=== PATIENT | female | born 1960 | race African-American/Black ===

== ENCOUNTER 2017-09-03 10:46 | Outpatient (CLI) | payer OTHER ==
[~2017-09-03 10:46] MED LIST: KETO10TA2 PO; NORVASC5 MG; NORVASC5 MG PO; ORPH100T PO; PROTONIX40 MG PO; ULTRACET
== END 2017-09-03 10:49 | disposition home or self-care (01) ==
LOC: RAD 10:46
DX: Z00.00 Encounter for general adult medical examination without abnormal findings (principal)

== ENCOUNTER 2018-05-12 11:04 | Outpatient (CLI) | payer OTHER | END 2018-05-12 11:11 | disposition home or self-care (01) | LOC: RAD 11:04 | DX: M54.5 Low back pain (principal) ==

== ENCOUNTER 2019-05-25 14:57 | Emergency (ER) | payer OTHER ==
[~2019-05-25] VITALS: Ht 157.5 cm; Wt 64.4 kg
[2019-05-25] MEDS ORDERED: NORVASC5 MG PO (15:15)
== END 2019-05-25 18:38 | disposition home or self-care (01) ==
LOC: ER 14:57
DX: K29.60 Other gastritis without bleeding (principal); E86.0 Dehydration; R11.11 Vomiting without nausea

== ENCOUNTER 2022-09-02 09:51 | Emergency (ER) | payer OTHER ==
[~2022-09-02] VITALS: Ht 157.5 cm; Wt 61.2 kg
[2022-09-02] MEDS ORDERED: PEPCID AC20 MG PO (16:21)
[2022-09-02] MEDS ORDERED: LEVSIN/SL0.125 MG PO (16:21)
[2022-09-02] MEDS ORDERED: ONDANSETRON ODT4 MG PO (16:21)
== END 2022-09-02 16:39 ==
LOC: ER 09:51
DX: K29.70 Gastritis, unspecified, without bleeding (principal); E86.0 Dehydration; I10 Essential (primary) hypertension; Z88.5 Allergy status to narcotic agent

== ENCOUNTER 2022-10-01 11:36 | Outpatient (CLI) | payer OTHER ==
[~2022-10-01 11:36] MED LIST changes: +LEVSIN/SL0.125 MG PO; +ONDANSETRON ODT4 MG PO; +PEPCID AC20 MG PO
== END 2022-10-01 11:37 | disposition home or self-care (01) ==
LOC: LAB 11:36
PROVIDERS: ATTEND Internal Medicine Hematology & Oncology
DX: D50.8 Other iron deficiency anemias (principal); R79.9 Abnormal finding of blood chemistry, unspecified; I10 Essential (primary) hypertension; R74.02 Elevation of levels of lactic acid dehydrogenase [LDH]; K76.89 Other specified diseases of liver; D51.8 Other vitamin B12 deficiency anemias; B20 Human immunodeficiency virus [HIV] disease; B17.9 Acute viral hepatitis, unspecified; Z11.59 Encounter for screening for other viral diseases; E55.9 Vitamin D deficiency, unspecified; B27.90 Infectious mononucleosis, unspecified without complication; D69.3 Immune thrombocytopenic purpura

== ENCOUNTER 2022-11-27 15:16 | Emergency (ER) | payer OTHER ==
[~2022-11-27] VITALS: Ht 157.5 cm; Wt 56.7 kg
[2022-11-27] MEDS ORDERED: PEPCID AC20 MG PO (18:30)
[2022-11-27] MEDS ORDERED: ZOFRAN8 MG PO (18:30)
== END 2022-11-27 20:41 | disposition home or self-care (01) ==
LOC: ER 15:16
DX: K29.70 Gastritis, unspecified, without bleeding (principal)

== ENCOUNTER → 2022-12-10 10:49 | Outpatient (CLI) | payer OTHER ==
[~2022-12-10 10:49] MED LIST changes: +ZOFRAN8 MG PO
== END | disposition home or self-care (01) ==
LOC: LAB 10:49
PROVIDERS: ATTEND Internal Medicine Cardiovascular Disease
DX: I10 Essential (primary) hypertension (principal); R63.4 Abnormal weight loss

== ENCOUNTER 2022-12-11 15:56 | Outpatient (CLI) | payer OTHER | END 2022-12-11 16:02 | disposition home or self-care (01) | LOC: LAB 15:56 | PROVIDERS: ATTEND Internal Medicine Cardiovascular Disease | DX: I10 Essential (primary) hypertension (principal); R63.4 Abnormal weight loss ==

== ENCOUNTER 2023-01-13 07:32 | Emergency (ER) | payer OTHER ==
[~2023-01-13] VITALS: Ht 162.6 cm; Wt 56.7 kg
== END 2023-01-13 10:32 | disposition home or self-care (01) ==
LOC: ER 07:32
DX: B34.9 Viral infection, unspecified (principal); R05.8 Other specified cough; J00 Acute nasopharyngitis [common cold]; R50.9 Fever, unspecified; Z88.5 Allergy status to narcotic agent; Z88.6 Allergy status to analgesic agent; Z20.822 Contact with and (suspected) exposure to COVID-19

== ENCOUNTER 2023-01-16 07:43 | Emergency (ER) | payer OTHER ==
[~2023-01-16] VITALS: Ht 157.5 cm; Wt 55.3 kg
== END 2023-01-16 10:25 | disposition home or self-care (01) ==
LOC: ER 07:43
DX: R04.0 Epistaxis (principal); Z88.6 Allergy status to analgesic agent; I10 Essential (primary) hypertension

== ENCOUNTER 2023-01-16 21:58 | Emergency (ER) | payer OTHER ==
[~2023-01-16] VITALS: Ht 157.5 cm; Wt 55.3 kg
== END 2023-01-17 00:56 | disposition home or self-care (01) ==
LOC: ER 21:58
DX: I16.9 Hypertensive crisis, unspecified (principal); I10 Essential (primary) hypertension; Z88.6 Allergy status to analgesic agent

== ENCOUNTER 2023-01-19 08:16 | Outpatient (CLI) | payer OTHER | END 2023-01-19 08:32 | disposition home or self-care (01) | LOC: LAB 08:16 | PROVIDERS: ATTEND Internal Medicine Hematology & Oncology | DX: D50.8 Other iron deficiency anemias (principal); R79.9 Abnormal finding of blood chemistry, unspecified; I10 Essential (primary) hypertension; R74.02 Elevation of levels of lactic acid dehydrogenase [LDH]; K76.89 Other specified diseases of liver; D51.8 Other vitamin B12 deficiency anemias; D68.8 Other specified coagulation defects; D69.1 Qualitative platelet defects ==

== ENCOUNTER 2023-01-29 09:10 | Outpatient (CLI) | payer OTHER | END 2023-01-29 09:11 | disposition home or self-care (01) | LOC: LAB 09:10 | PROVIDERS: ATTEND Obstetrics & Gynecology Maternal & Fetal Medicine | DX: E03.9 Hypothyroidism, unspecified (principal) ==

== ENCOUNTER 2023-01-29 09:39 | Outpatient (CLI) | payer OTHER | END 2023-01-29 09:50 | disposition home or self-care (01) | LOC: MAMO-SONO 09:39 | PROVIDERS: ATTEND Obstetrics & Gynecology Maternal & Fetal Medicine | DX: Z12.31 Encounter for screening mammogram for malignant neoplasm of breast (principal); N63.0 Unspecified lump in unspecified breast; N64.4 Mastodynia; N60.11 Diffuse cystic mastopathy of right breast ==

== ENCOUNTER 2023-04-29 10:38 | Outpatient (CLI) | payer OTHER | END 2023-04-29 10:40 | disposition home or self-care (01) | LOC: LAB 10:38 | DX: E03.9 Hypothyroidism, unspecified (principal); E78.2 Mixed hyperlipidemia; D64.9 Anemia, unspecified; R73.01 Impaired fasting glucose ==

== ENCOUNTER 2023-04-29 11:54 | Outpatient (CLI) | payer OTHER | END 2023-04-29 12:07 | disposition home or self-care (01) | LOC: SONOGRAMA 11:54 | DX: E04.1 Nontoxic single thyroid nodule (principal) ==

== ENCOUNTER 2023-05-29 08:50 | Outpatient (CLI) | payer OTHER | END 2023-05-29 08:51 | disposition home or self-care (01) | LOC: SONOGRAMA 08:50 | PROVIDERS: ATTEND Pathology Anatomic Pathology & Clinical Pathology | DX: D44.0 Neoplasm of uncertain behavior of thyroid gland (principal); E07.9 Disorder of thyroid, unspecified ==

== ENCOUNTER 2023-07-22 11:12 | Outpatient (CLI) | payer OTHER | END 2023-07-22 11:25 | disposition home or self-care (01) | LOC: RAD 11:12 | PROVIDERS: ATTEND Physical Medicine & Rehabilitation | DX: M25.512 Pain in left shoulder (principal); M54.12 Radiculopathy, cervical region ==

== ENCOUNTER 2023-07-23 13:23 | Emergency (ER) | payer OTHER ==
[~2023-07-23] VITALS: Ht 149.9 cm; Wt 56.7 kg
[2023-07-23 18:36] LABS: HEMATOCRIT 43.6 % (36.0-45.00); HEMOGLOBIN 14.2 g/dL (12.0-15.00); MEAN CORPUSCULAR HEMOGLOBIN 30.3 pg (27.00-32.0); MEAN CORPUSCULAR HGB CONC 32.6 g/dl (32.0-36.0); PLATELET COUNT 179 K/uL (150-450); RED BLOOD COUNT 4.69 M/uL (4.00-6.00); RED CELL DISTRIBUTION WIDTH 13.1 % (11.5-14.5)
[2023-07-23 19:01] LABS: ALBUMIN 3.9 gm/dL (3.4-5.0); BILIRUBIN TOTAL 0.5 mg/dL (0.3-1.2); CALCIUM 9.5 mg/dL (8.5-10.1); CREATININE SERUM 0.7 mg/dL (0.55-1.02); GFR 85.07; GLOBULINA 4.4 G/DL (2.4-3.5); POTASSIUM 3.51 mEq/L (3.5-5.1); TOTAL PROTEIN 8.3 gm/dL (6.4-8.2)
== END 2023-07-23 19:56 | disposition home or self-care (01) ==
LOC: ER 13:23
PROVIDERS: General Practice
DX: R11.2 Nausea with vomiting, unspecified (principal); M54.2 Cervicalgia; Z20.822 Contact with and (suspected) exposure to COVID-19

== ENCOUNTER 2023-08-14 07:27 | Outpatient (CLI) | payer OTHER ==
[2023-08-14 08:53] LABS: CALCIUM 9.5 mg/dL (8.5-10.1); CREATININE SERUM 0.77 mg/dL (0.55-1.02); GFR 75.96; POTASSIUM 4.4 mEq/L (3.5-5.1)
[2023-08-14 09:02] LABS: T4 FREE 1.1 NG/ML (0.76-1.46); TSH 2.13 uIU/mL (0.358-3.74)
== END 2023-08-14 07:39 | disposition home or self-care (01) ==
LOC: LAB 07:27
PROVIDERS: ATTEND Internal Medicine Endocrinology, Diabetes & Metabolism
DX: E10.65 Type 1 diabetes mellitus with hyperglycemia (principal); E03.8 Other specified hypothyroidism; E24.0 Pituitary-dependent Cushing's disease; C73 Malignant neoplasm of thyroid gland; Z88.5 Allergy status to narcotic agent; Z88.6 Allergy status to analgesic agent

== ENCOUNTER 2023-08-29 14:11 | Emergency (ER) | payer OTHER ==
[~2023-08-29] VITALS: Ht 149.9 cm; Wt 55.3 kg
== END 2023-08-29 21:33 | disposition home or self-care (01) ==
LOC: ER 14:11
DX: M62.838 Other muscle spasm (principal); M54.2 Cervicalgia; Z88.8 Allergy status to other drugs, medicaments and biological substances

== ENCOUNTER 2023-10-28 10:08 | Outpatient (CLI) | payer OTHER ==
[2023-10-28 11:18] LABS: HEMATOCRIT 40.1 % (36.0-45.00); HEMOGLOBIN 13.5 g/dL (12.0-15.00); MEAN CORPUSCULAR HGB CONC 33.6 g/dl (32.0-36.0); PLATELET COUNT 161 K/uL (150-450); RED BLOOD COUNT 4.36 M/uL (4.00-6.00); RED CELL DISTRIBUTION WIDTH 12.9 % (11.5-14.5)
[2023-10-28 11:19] LABS: PH,URINE 7.5 (5.0-8.0); URINE APPEARANCE Clear; URINE BILIRRUBIN Negative (NEGATIVE); URINE BLOOD Negative; URINE COLOR Yellow; URINE GLUCOSE Negative (NEGATIVE); URINE LEUKOCYTE Negative; URINE NITRATE Negative; URINE PROTEIN Negative (NEGATIVE); URINE UROBILINOGEN 0.2 E.U./dl
[2023-10-28 11:21] LABS: URINE BACTERIA 15.1 uL (0.0-1933)
[2023-10-28 11:31] LABS: URINE EPITHELIAL CELLS 0.9 uL (0.0-38.8); URINE RBC 0.8 uL (0.0-20.8); URINE WBC 0.4 uL (0.0-23.2)
[2023-10-28 12:01] LABS: ALBUMIN 3.8 gm/dL (3.4-5.0); BILIRUBIN TOTAL 0.59 mg/dL (0.3-1.2); CALCIUM 9.2 mg/dL (8.5-10.1); CHOL HDL RATIO 2.9 (0-5.0); CREATININE SERUM 0.74 mg/dL (0.55-1.02); GFR 79.52; GLOBULINA 3.4 G/DL (2.4-3.5); POTASSIUM 4.35 mEq/L (3.5-5.1); T4 FREE 0.98 NG/ML (0.76-1.46); TOTAL PROTEIN 7.2 gm/dL (6.4-8.2); TSH 1.08 uIU/mL (0.358-3.74)
== END 2023-10-28 10:22 | disposition home or self-care (01) ==
LOC: LAB 10:08
PROVIDERS: ATTEND Internal Medicine
DX: E11.65 Type 2 diabetes mellitus with hyperglycemia (principal); I10 Essential (primary) hypertension; E03.8 Other specified hypothyroidism; E78.9 Disorder of lipoprotein metabolism, unspecified

== ENCOUNTER 2023-11-05 09:50 | Outpatient (CLI) | payer OTHER | END 2023-11-05 09:52 | disposition home or self-care (01) | LOC: SONOGRAMA 09:50 | PROVIDERS: ATTEND Pathology Anatomic Pathology & Clinical Pathology | DX: D44.0 Neoplasm of uncertain behavior of thyroid gland (principal); E04.2 Nontoxic multinodular goiter ==

== ENCOUNTER 2023-12-03 09:54 | Outpatient (CLI) | payer OTHER | END 2023-12-03 09:57 | disposition home or self-care (01) | LOC: SONOGRAMA 09:54 | PROVIDERS: ATTEND Internal Medicine Cardiovascular Disease | DX: R10.9 Unspecified abdominal pain (principal); Z88.5 Allergy status to narcotic agent; Z88.6 Allergy status to analgesic agent ==

== ENCOUNTER 2023-12-03 10:51 | Outpatient (CLI) | payer OTHER ==
[2023-12-03 11:52] LABS: HEMATOCRIT 42.4 % (36.0-45.00); HEMOGLOBIN 14.3 g/dL (12.0-15.00); MEAN CELL VOLUME 93.2 fL (80.00-100.00); MEAN CORPUSCULAR HEMOGLOBIN 31.3 pg (27.00-32.0); MEAN CORPUSCULAR HGB CONC 33.6 g/dl (32.0-36.0); PLATELET COUNT 159 K/uL (150-450); RED BLOOD COUNT 4.55 M/uL (4.00-6.00); RED CELL DISTRIBUTION WIDTH 12.9 % (11.5-14.5)
[2023-12-03 12:45] LABS: BILIRUBIN TOTAL 0.45 mg/dL (0.3-1.2); CALCIUM 9.4 mg/dL (8.5-10.1); CREATININE SERUM 0.7 mg/dL (0.55-1.02); GFR 84.79; GLOBULINA 3.7 G/DL (2.4-3.5); POTASSIUM 4.14 mEq/L (3.5-5.1); TOTAL PROTEIN 7.7 gm/dL (6.4-8.2)
[2023-12-03 13:16] LABS: FOLIC ACID > 20.00 ng/ml (4.78-20)
== END 2023-12-03 10:52 | disposition home or self-care (01) ==
LOC: LAB 10:51
PROVIDERS: ATTEND Internal Medicine Hematology & Oncology
DX: D50.8 Other iron deficiency anemias (principal); R79.9 Abnormal finding of blood chemistry, unspecified; R74.02 Elevation of levels of lactic acid dehydrogenase [LDH]; K76.89 Other specified diseases of liver; D51.8 Other vitamin B12 deficiency anemias; C50.919 Malignant neoplasm of unspecified site of unspecified female breast; R97.8 Other abnormal tumor markers; C25.9 Malignant neoplasm of pancreas, unspecified; C56.9 Malignant neoplasm of unspecified ovary; R97.1 Elevated cancer antigen 125 [CA 125]; R97.0 Elevated carcinoembryonic antigen [CEA]; D69.3 Immune thrombocytopenic purpura; D51.3 Other dietary vitamin B12 deficiency anemia; I10 Essential (primary) hypertension; Z88.5 Allergy status to narcotic agent; Z88.6 Allergy status to analgesic agent

== ENCOUNTER 2024-04-05 11:05 | Emergency (ER) | payer OTHER ==
[~2024-04-05] VITALS: Ht 149.9 cm; Wt 56.7 kg
[2024-04-05] MEDS ORDERED: KETOROLAC TROMETHAMINE 30 MG VIAL IM STA (13:15)
[2024-04-05] MEDS ORDERED: ONDANSETRON HCL 2 MG/ML VIAL IM STA (13:16)
[2024-04-05] MEDS ORDERED: ADVIL DUAL ACT1 EACH PO (14:06)
[2024-04-05] MEDS ORDERED: NORFLEX100MG PO (14:06)
== END 2024-04-05 14:52 | disposition home or self-care (01) ==
LOC: ER 11:06
DX: M62.838 Other muscle spasm (principal); E11.9 Type 2 diabetes mellitus without complications; Z79.84 Long term (current) use of oral hypoglycemic drugs; I10 Essential (primary) hypertension; Z88.8 Allergy status to other drugs, medicaments and biological substances

== ENCOUNTER → 2024-07-27 11:18 | Outpatient (CLI) | payer OTHER ==
[2024-07-27 12:07] LABS: HEMATOCRIT 39.1 % (36.0-45.00); HEMOGLOBIN 12.9 g/dL (12.0-15.00); MEAN CELL VOLUME 93.3 fL (80.00-100.00); MEAN CORPUSCULAR HEMOGLOBIN 30.7 pg (27.00-32.0); MEAN CORPUSCULAR HGB CONC 32.9 g/dl (32.0-36.0); PLATELET COUNT 156 K/uL (150-450); RED BLOOD COUNT 4.19 M/uL (4.00-6.00); RED CELL DISTRIBUTION WIDTH 12.7 % (11.5-14.5)
[2024-07-27 12:51] LABS: ALBUMIN 3.8 gm/dL (3.4-5.0); BILIRUBIN TOTAL 0.53 mg/dL (0.3-1.2); CALCIUM 9.1 mg/dL (8.5-10.1); CHOL HDL RATIO 3.3 (0-5.0); CREATININE SERUM 0.7 mg/dL (0.55-1.02); GFR 84.79; GLOBULINA 3.3 G/DL (2.4-3.5); POTASSIUM 4.48 mEq/L (3.5-5.1); T4 FREE 1.01 NG/ML (0.76-1.46); TOTAL PROTEIN 7.1 gm/dL (6.4-8.2); TSH 1.01 uIU/mL (0.358-3.74)
== END | disposition home or self-care (01) ==
LOC: LAB 11:18
PROVIDERS: ATTEND Internal Medicine
DX: E03.8 Other specified hypothyroidism (principal); E11.65 Type 2 diabetes mellitus with hyperglycemia; E78.5 Hyperlipidemia, unspecified

== ENCOUNTER → 2024-07-27 | Outpatient (CLI) | payer OTHER ==
[~2024-07-27] MED LIST changes: +ADVIL DUAL ACT1 EACH PO; +NORFLEX100MG PO
== END | disposition home or self-care (01) ==
LOC: SONOGRAMA 12:18
PROVIDERS: ATTEND Internal Medicine
DX: E04.2 Nontoxic multinodular goiter (principal)

== ENCOUNTER 2024-10-19 11:27 | Outpatient (CLI) | payer OTHER | END 2024-10-19 11:34 | disposition home or self-care (01) | LOC: SONOGRAMA 11:27 | PROVIDERS: ATTEND Internal Medicine Cardiovascular Disease | DX: R10.9 Unspecified abdominal pain (principal) ==

== ENCOUNTER → 2024-10-26 10:47 | Outpatient (CLI) | payer OTHER ==
[2024-10-26 11:34] LABS: PH,URINE 7.5 (5.0-8.0); URINE APPEARANCE Clear; URINE BILIRRUBIN Negative (NEGATIVE); URINE BLOOD Negative; URINE COLOR Yellow; URINE GLUCOSE Negative (NEGATIVE); URINE KETONE Negative (NEGATIVE); URINE LEUKOCYTE Trace; URINE NITRATE Negative; URINE PROTEIN Negative (NEGATIVE); URINE UROBILINOGEN 0.2 E.U./dl
[2024-10-26 11:36] LABS: URINE WBC 1.8 uL (0.0-23.2)
[2024-10-26 11:38] LABS: HEMATOCRIT 36.7 % (36.0-45.00); HEMOGLOBIN 12.1 g/dL (12.0-15.00); MEAN CELL VOLUME 92.8 fL (80.00-100.00); MEAN CORPUSCULAR HEMOGLOBIN 30.7 pg (27.00-32.0); PLATELET COUNT 144 K/uL (150-450); RED BLOOD COUNT 3.96 M/uL (4.00-6.00); RED CELL DISTRIBUTION WIDTH 13.1 % (11.5-14.5)
[2024-10-26 11:42] LABS: URINE BACTERIA 3.6 uL (0.0-1933); URINE EPITHELIAL CELLS 1.2 uL (0.0-38.8); URINE RBC 0.7 uL (0.0-20.8)
[2024-10-26 12:42] LABS: ALBUMIN 3.5 gm/dL (3.4-5.0); BILIRUBIN TOTAL 0.81 mg/dL (0.3-1.2); CALCIUM 9.1 mg/dL (8.5-10.1); CREATININE SERUM 0.68 mg/dL (0.55-1.02); GFR 87.39; POTASSIUM 5.02 mEq/L (3.5-5.1); T4 TOTAL 8.33 UG/DL (4.8-13.9); TOTAL PROTEIN 6.5 gm/dL (6.4-8.2); TSH 1.18 uIU/mL (0.358-3.74)
[2024-10-26 13:07] LABS: T3 TOTAL 1.26 ng/ml (0.846-2.02); VITAMIN D3 25 HYDROXY 27.97 ng/ml (30-120)
[2024-10-26 13:20] LABS: ob NEGATIVE (NEGATIVE)
== END | disposition home or self-care (01) ==
LOC: LAB 10:47
PROVIDERS: ATTEND Internal Medicine Cardiovascular Disease
DX: I10 Essential (primary) hypertension (principal); E11.9 Type 2 diabetes mellitus without complications; E03.9 Hypothyroidism, unspecified; E78.2 Mixed hyperlipidemia; D64.0 Hereditary sideroblastic anemia; Z12.11 Encounter for screening for malignant neoplasm of colon; E55.9 Vitamin D deficiency, unspecified; M81.0 Age-related osteoporosis without current pathological fracture

== ENCOUNTER 2024-11-03 12:09 | Outpatient (CLI) | payer OTHER | END 2024-11-03 12:11 | disposition home or self-care (01) | LOC: RAD 12:09 | PROVIDERS: ATTEND Physical Medicine & Rehabilitation | DX: M54.59 Other low back pain (principal); M25.572 Pain in left ankle and joints of left foot ==

== ENCOUNTER 2024-11-23 09:32 | Outpatient (CLI) | payer OTHER ==
[2024-11-23 10:46] LABS: HEMATOCRIT 36.8 % (36.0-45.00); HEMOGLOBIN 12.3 g/dL (12.0-15.00); MEAN CELL VOLUME 92.5 fL (80.00-100.00); MEAN CORPUSCULAR HGB CONC 33.5 g/dl (32.0-36.0); RED BLOOD COUNT 3.98 M/uL (4.00-6.00); RED CELL DISTRIBUTION WIDTH 13.4 % (11.5-14.5)
[2024-11-23 10:54] LABS: PLATELET COUNT 128 K/uL (150-450)
[2024-11-23 11:33] LABS: ALBUMIN 3.4 gm/dL (3.4-5.0); BILIRUBIN TOTAL 0.4 mg/dL (0.3-1.2); CALCIUM 8.8 mg/dL (8.5-10.1); CREATININE SERUM 0.72 mg/dL (0.55-1.02); FERRITIN 55.2 NG/ML (8-252); GFR 81.81; GLOBULINA 3.3 G/DL (2.4-3.5); POTASSIUM 4.24 mEq/L (3.5-5.1); T4 FREE 0.98 NG/ML (0.76-1.46); TOTAL PROTEIN 6.7 gm/dL (6.4-8.2); TSH 1.25 uIU/mL (0.358-3.74)
[2024-11-23 11:41] LABS: FOLIC ACID 12.04 ng/ml (4.78-20); VITAMIN D3 25 HYDROXY 30.61 ng/ml (30-120)
[2024-11-23 14:05] LABS: MANUAL PLATELET COUNT 264; PLATELET ESTIMATE NORMAL (NORMAL)
[2024-11-24 10:05] LABS: CA 125 10.9 U/mL (0.0-38.1); CA 15-3 5.2 U/mL (0.0-25.0); CA 19-9 < 2 U/mL (0-35)
== END 2024-11-23 09:33 | disposition home or self-care (01) ==
LOC: LAB 09:32
PROVIDERS: ATTEND Internal Medicine Hematology & Oncology
DX: Z80.0 Family history of malignant neoplasm of digestive organs (principal); Z80.42 Family history of malignant neoplasm of prostate; D69.3 Immune thrombocytopenic purpura; D51.3 Other dietary vitamin B12 deficiency anemia; I10 Essential (primary) hypertension; E06.5 Other chronic thyroiditis; D50.8 Other iron deficiency anemias; R79.9 Abnormal finding of blood chemistry, unspecified; R74.02 Elevation of levels of lactic acid dehydrogenase [LDH]; K76.89 Other specified diseases of liver; E55.9 Vitamin D deficiency, unspecified; C50.919 Malignant neoplasm of unspecified site of unspecified female breast; R97.8 Other abnormal tumor markers; E11.65 Type 2 diabetes mellitus with hyperglycemia; E78.5 Hyperlipidemia, unspecified; E03.8 Other specified hypothyroidism

== ENCOUNTER 2025-04-19 10:53 | Outpatient (CLI) | payer OTHER ==
[2025-04-19 12:18] LABS: BASO % 0.8 % (0.1-1.2); EOS # 0.10 (0.04-0.54); EOS % 1.9 % (0.7-7.0); LYMPH # 1.94 (1.18-3.74); LYMPH % 37.5 % (19.3-53.1); MEAN PLATELET VOLUME 11.70 fl (9.4-12.4); MONO # 0.63 (0.24-0.82); NEUT # 2.45 (1.56-6.13); NEUT % 47.4 % (34.0-71.1); RED CELL DISTRIBUTION WIDTH 12.9 % (11.6-14.4)
[2025-04-19 12:24] LABS: MONO % 12.2 % (4.7-12.5)
[2025-04-19 12:27] LABS: URINE APPEARANCE Clear; URINE BILIRRUBIN Negative (NEGATIVE); URINE BLOOD Negative; URINE COLOR Yellow; URINE GLUCOSE Negative (NEGATIVE); URINE KETONE Negative (NEGATIVE); URINE LEUKOCYTE Small; URINE NITRATE Negative; URINE PROTEIN Negative (NEGATIVE); URINE UROBILINOGEN 0.2 E.U./dl
[2025-04-19 12:32] LABS: URINE BACTERIA 26.3 uL (0.0-1933); URINE EPITHELIAL CELLS 2.3 uL (0.0-38.8); URINE RBC 3.2 uL (0.0-20.8); URINE WBC 19.9 uL (0.0-23.2)
[2025-04-19 12:41] LABS: URINE CAST 0.00 uL (0.0-1.40)
[2025-04-19 12:55] LABS: ALT/SGPT 41.0 U/L (12-78); AST/SGOT 24.0 U/L (15-37); BILIRUBIN TOTAL 0.58 mg/dL (0.3-1.2); BUN CREA RATIO 20.0 (7.0-25.0); CHOL HDL RATIO 2.6 (0-5.0); CREATININE SERUM 0.76 mg/dL (0.55-1.02); GFR 76.86; GLOBULINA 3.4 G/DL (2.4-3.5); GLUCOSE FASTING 81.0 mg/dL (65-100); HDL 80.0 mg/dl (40-60); LDL 119.0 mg/dl (0-130); OSMOLALITY SERUM 289.0 MOSM/KG (275-295); T4 TOTAL 8.86 UG/DL (4.8-13.9); TSH 1.51 uIU/mL (0.358-3.74); VLDL 11.0 (0-39)
[2025-04-19 14:02] LABS: ob NEGATIVE (NEGATIVE)
[2025-04-19 15:09] LABS: T3 TOTAL 1.4 ng/ml (0.846-2.02); VITAMIN D3 25 HYDROXY 29.01 ng/ml (30-120)
== END 2025-04-19 11:11 | disposition home or self-care (01) ==
LOC: LAB 10:53
PROVIDERS: ATTEND Internal Medicine Cardiovascular Disease
DX: I10 Essential (primary) hypertension (principal); E11.9 Type 2 diabetes mellitus without complications; E03.9 Hypothyroidism, unspecified; E78.2 Mixed hyperlipidemia; D64.0 Hereditary sideroblastic anemia; Z12.11 Encounter for screening for malignant neoplasm of colon; E55.9 Vitamin D deficiency, unspecified; M81.0 Age-related osteoporosis without current pathological fracture; R73.03 Prediabetes

== ENCOUNTER 2025-07-19 12:28 | Outpatient (CLI) | payer OTHER ==
[2025-07-19 13:39] LABS: BASO % 0.5 % (0.1-1.2); EOS # 0.09 (0.04-0.54); EOS % 1.2 % (0.7-7.0); LYMPH # 1.96 (1.18-3.74); LYMPH % 25.3 % (19.3-53.1); MEAN PLATELET VOLUME 12.50 fl (9.4-12.4); MONO # 0.61 (0.24-0.82); MONO % 7.9 % (4.7-12.5); NEUT # 5.04 (1.56-6.13); NEUT % 65.0 % (34.0-71.1); RED CELL DISTRIBUTION WIDTH 12.7 % (11.6-14.4)
[2025-07-19 13:50] LABS: URINE APPEARANCE Clear; URINE BILIRRUBIN Negative (NEGATIVE); URINE BLOOD Negative; URINE COLOR Yellow; URINE GLUCOSE Negative (NEGATIVE); URINE KETONE Negative (NEGATIVE); URINE LEUKOCYTE Trace; URINE NITRATE Negative; URINE PROTEIN Negative (NEGATIVE); URINE UROBILINOGEN 0.2 E.U./dl
[2025-07-19 13:53] LABS: URINE RBC 2.4 uL (0.0-20.8); URINE WBC 10.2 uL (0.0-23.2)
[2025-07-19 14:03] LABS: ob NEGATIVE (NEGATIVE)
[2025-07-19 14:39] LABS: ALT/SGPT 33.0 U/L (12-78); AST/SGOT 20.0 U/L (15-37); BILIRUBIN TOTAL 0.73 mg/dL (0.3-1.2); BUN CREA RATIO 16.0 (7.0-25.0); CHOL HDL RATIO 2.9 (0-5.0); CREATININE SERUM 0.74 mg/dL (0.55-1.02); FE 136.0 ug/dl (50-170); GFR 79.26; GLOBULINA 3.3 G/DL (2.4-3.5); GLUCOSE FASTING 86.0 mg/dL (65-100); HDL 83.0 mg/dl (40-60); LDH 274.0 U/L (84-246); LDL 148.0 mg/dl (0-130); OSMOLALITY SERUM 282.0 MOSM/KG (275-295); T4 FREE 1.01 NG/ML (0.76-1.46); TSH 1.45 uIU/mL (0.358-3.74); VLDL 12.0 (0-39)
[2025-07-19 14:56] LABS: FOLIC ACID > 20.00 ng/ml (4.78-20); VITAMIN D3 25 HYDROXY 47.50 ng/ml (30-120)
[2025-07-19 15:04] LABS: URINE BACTERIA 3.5 uL (0.0-1933); URINE CAST 1.17 uL (0.0-1.40); URINE EPITHELIAL CELLS 0.7 uL (0.0-38.8)
[2025-07-21 11:11] LABS: CA 125 11.8 U/mL (0.0-38.1); CA 15-3 6.8 U/mL (0.0-25.0); CA 19-9 < 2 U/mL (0-35)
== END 2025-07-19 12:43 | disposition home or self-care (01) ==
LOC: LAB 12:28
PROVIDERS: ATTEND Internal Medicine
DX: E11.65 Type 2 diabetes mellitus with hyperglycemia (principal); E78.5 Hyperlipidemia, unspecified; I10 Essential (primary) hypertension; E03.8 Other specified hypothyroidism; E55.9 Vitamin D deficiency, unspecified; Z80.0 Family history of malignant neoplasm of digestive organs; Z80.42 Family history of malignant neoplasm of prostate; D50.8 Other iron deficiency anemias; D69.3 Immune thrombocytopenic purpura; D51.3 Other dietary vitamin B12 deficiency anemia; D53.0 Protein deficiency anemia; E06.5 Other chronic thyroiditis; R74.02 Elevation of levels of lactic acid dehydrogenase [LDH]; K76.89 Other specified diseases of liver; C50.919 Malignant neoplasm of unspecified site of unspecified female breast; C25.9 Malignant neoplasm of pancreas, unspecified; C56.9 Malignant neoplasm of unspecified ovary; R97.0 Elevated carcinoembryonic antigen [CEA]

== ENCOUNTER 2025-08-03 09:52 | Outpatient (CLI) | payer OTHER | END 2025-08-03 09:58 | disposition home or self-care (01) | LOC: MAMO-SONO 09:52 | PROVIDERS: ATTEND Internal Medicine Hematology & Oncology | DX: N64.4 Mastodynia (principal); N63 Unspecified lump in breast; Z80.0 Family history of malignant neoplasm of digestive organs; Z80.42 Family history of malignant neoplasm of prostate; D50.8 Other iron deficiency anemias; D69.3 Immune thrombocytopenic purpura; D51.3 Other dietary vitamin B12 deficiency anemia; D53.0 Protein deficiency anemia; I10 Essential (primary) hypertension; E06.5 Other chronic thyroiditis; E04.2 Nontoxic multinodular goiter ==